=== PATIENT | female | born 1955 | race Caucasian/White ===

== ENCOUNTER 2025-04-24 18:29 | Emergency (ER) | payer OTHER, MEDICARE ==
[2025-04-24] MEDS ORDERED: Boostrix 0.5 ML (Tdap) VIAL (>/=7 yrs of age) ONE (20:41)
[2025-04-24] MEDS ORDERED: Cephalexin 500 MG CAP ONE (20:41)
[2025-04-24] MEDS ORDERED: Clindamycin 150 MG CAP ONE (20:41)
[2025-04-24] MEDS ORDERED: Acetaminophen 325 MG TAB ONE (20:41)
[2025-04-24] MEDS ORDERED: Bacitracin 1 PK ONE (20:41)
== END 2025-04-24 21:05 | disposition home or self-care (01) ==
LOC: NAV ERS 18:29
DX: S61.230A Puncture wound without foreign body of right index finger without damage to nail, initial encounter (principal); L03.90 Cellulitis, unspecified; I10 Essential (primary) hypertension; F17.290 Nicotine dependence, other tobacco product, uncomplicated; Z79.899 Other long term (current) drug therapy; Z23 Encounter for immunization; W60.XXXA Contact with nonvenomous plant thorns and spines and sharp leaves, initial encounter
CPT/HCPCS: 10160; 90471; 90715